=== PATIENT | female | born 1990 | race Caucasian/White ===

== ENCOUNTER 2017-09-30 21:03 | Emergency (ER) | payer MEDICAID ==
[~2017-09-30] VITALS: Ht 162.6 cm; Wt 125.0 kg
[2017-09-30 21:22] VITALS: BP 149/87
[2017-09-30] MEDS ORDERED: HYDROcodone/APAP 5/325 TABLET PO ONE (22:00)
[2017-09-30] MEDS ORDERED: HYDROcodone/APAP 5/325 TABLET ONE (22:03)
== END 2017-09-30 22:31 | disposition home or self-care (01) ==
LOC: ED 21:48
DX: K02.9 Dental caries, unspecified (principal)
CPT/HCPCS: 99283

== ENCOUNTER 2018-06-02 17:29 | Emergency (ER) | payer SELFPAY | END 2018-06-02 18:36 | disposition left against medical advice (07) | LOC: ED 18:30 | DX: Z53.21 Procedure and treatment not carried out due to patient leaving prior to being seen by health care provider (principal) ==

== ENCOUNTER 2018-06-03 16:07 | Emergency (ER) | payer SELFPAY ==
[~2018-06-03] VITALS: Ht 165.1 cm; Wt 139.3 kg
[2018-06-03 16:12] VITALS: BP 138/83
[2018-06-03] MEDS ORDERED: HYDROcodone/APAP 5/325 TABLET PO ONE (16:30)
[2018-06-03] MEDS ORDERED: ONDANSETRON ODT 4 MG PO ONE (16:30)
[2018-06-03] MEDS ORDERED: ONDANSETRON ODT 4 MG ONE (16:34)
[2018-06-03] MEDS ORDERED: HYDROcodone/APAP 5/325 TABLET ONE (16:34)
== END 2018-06-03 17:26 | disposition home or self-care (01) ==
LOC: ED 17:18
DX: G89.11 Acute pain due to trauma (principal); M25.512 Pain in left shoulder; M25.522 Pain in left elbow; F17.200 Nicotine dependence, unspecified, uncomplicated
CPT/HCPCS: 73060; 99284; Q0162